=== PATIENT | male | born 1935 | race Caucasian/White ===

== ENCOUNTER 2018-01-15 21:30 | Inpatient (IN) | payer MEDICARE, OTHER ==
[2018-01-15 21:54] LABS: ADD MAN DIFF? NO
[2018-01-15 22:00] LABS: WHITE BLOOD COUNT 9.1 10^3/ul (4.8-10.8)
[2018-01-15 22:00] LABS: ABNORMAL IP MESSAGE 1; BASOPHILS % 0.4 % (0.0-2.0); EOSINOPHILS # 0.2 10^3/ul (0.0-0.5); EOSINOPHILS % 1.7 % (0.0-7.0); HEMATOCRIT 28.7 % (42.0-52.0); HEMOGLOBIN 7.6 g/dl (14.0-18.0); LYMPHOCYTES # 0.9 10^3/ul (0.8-2.9); LYMPHOCYTES % 9.5 % (15.0-51.0); MEAN CORPUSCULAR HEMOGLOBIN 25.5 pg (29.0-33.0); MEAN CORPUSCULAR HGB CONC 26.5 g/dl (32.0-37.0); MEAN CORPUSCULAR VOLUME 96.3 fl (82.0-101.0); MEAN PLATELET VOLUME 9.4 fl (7.4-10.4); MONOCYTES % 11.2 % (0.0-11.0); NEUTROPHILS % 76.6 % (39.0-77.0); PLATELET COUNT 210 10^3/UL (140-415); POSITIVE DIFF @See below; RED BLOOD COUNT 2.98 10^6/ul (4.70-6.10); RED CELL DISTRIBUTION WIDTH 15.6 % (11.5-14.5)
[2018-01-15 22:08] LABS: AADO2 Arterial 150.3 mmHg (7.0-24.0); Allen Test ACCEPTAB; Arterial Base Excess 8.5 mmol/L (-3.0-3); Arterial Blood Gas Oxygen Sat 88.4 mmHG (95.0-100.0); Arterial COHb 1.3 % (0.0-3.0); Arterial Fraction of Oxyhgb 86.9 % (93.0-99.0); Arterial MetHb 0.4 % (0.0-1.5); Arterial Total Hemglobin 9.8 g/dl (12.0-18.0); Arterial pCO2 59.8 mmhg (35-45); MODE NASAL CANNULA; Site Right Radial
[2018-01-15] MEDS ORDERED: IPRATROPIUM (NEB) 0.5 MG/2.5 ML AMP (22:13)
[2018-01-15] MEDS ORDERED: ALBUTEROL 0.5% (NEB) 2.5 MG/0.5 ML AMP (22:13)
[2018-01-15] MEDS: ALBUTEROL 0.083% (NEB) 2.5 MG/3 ML AMP HHN (22:22)
[2018-01-15] MEDS: IPRATROPIUM (NEB) 0.5 MG/2.5 ML AMP HHN (22:22)
[2018-01-15 22:23] LABS: ANION GAP 7 (8-16); BLOOD UREA NITROGEN 26 mg/dl (7-20); CALCIUM 8.2 mg/dl (8.4-10.2); CARBON DIOXIDE 36 mmol/L (21-31); CHLORIDE 105 mmol/L (97-110); CREATININE 0.72 mg/dl (0.61-1.24); GLUCOSE 117 mg/dl (70-220); POTASSIUM 4.5 mmol/L (3.5-5.1); SODIUM 143 mmol/L (135-144)
[2018-01-15 22:36] LABS: B-TYPE NATRIURETIC PEPTIDE 1040 PG/ML (0-450); TROPONIN-I 0.062 ng/ml (0.000-0.120)
[2018-01-15] MEDS: METHYLPREDNISOLONE 125 MG INJ IV (22:44)
[2018-01-15] MEDS: ASPIRIN 325 MG TAB PO (22:45)
[2018-01-15] MEDS ORDERED: ALBUTEROL 0.083% (NEB) 2.5 MG/3 ML AMP HHN (23:30)
[2018-01-15] MEDS ORDERED: NACL 0.9% 3 ML SYG IV (23:30)
[2018-01-15] MEDS ORDERED: ACETAMINOPHEN 325 MG TAB PO (23:30)
[2018-01-15] MEDS ORDERED: BISACODYL (EC) 5 MG TAB PO (23:30)
[2018-01-15] MEDS ORDERED: DOCUSATE SODIUM 100 MG CAP PO (23:30)
[2018-01-16] MEDS: ALBUTEROL/IPRATROPIUM (NEB) 3 ML AMP HHN ×4 (01:00→20:24)
[2018-01-16] MEDS: FUROSEMIDE 40 MG INJ IV ×3 (01:14→20:56)
[2018-01-16] MEDS: PANTOPRAZOLE (EC) 40 MG TAB PO (05:55)
[2018-01-16] MEDS: METHYLPREDNISOLONE 125 MG INJ IV (05:55)
[2018-01-16 07:15] LABS: ADD MAN DIFF? NO
[2018-01-16 07:18] LABS: ABNORMAL IP MESSAGE 1; BASOPHILS % 0.1 % (0.0-2.0); HEMATOCRIT 32.1 % (42.0-52.0); HEMOGLOBIN 8.5 g/dl (14.0-18.0); LYMPHOCYTES # 0.2 10^3/ul (0.8-2.9); LYMPHOCYTES % 2.4 % (15.0-51.0); MEAN CORPUSCULAR HGB CONC 26.5 g/dl (32.0-37.0); MEAN CORPUSCULAR VOLUME 94.4 fl (82.0-101.0); MEAN PLATELET VOLUME 9.7 fl (7.4-10.4); MONOCYTE # 0.1 10^3/ul (0.3-0.9); NEUTROPHIL # 8.6 10^3/ul (1.6-7.5); NEUTROPHILS % 95.7 % (39.0-77.0); PLATELET COUNT 220 10^3/UL (140-415); POSITIVE DIFF @See below; RED CELL DISTRIBUTION WIDTH 15.3 % (11.5-14.5)
[2018-01-16 07:41] LABS: CREATINE KINASE 24 IU/L (23-200)
[2018-01-16 07:47] LABS: C-REACTIVE PROTEIN 5.6 mg/dl (0.0-0.9)
[2018-01-16 07:48] LABS: ALANINE AMINOTRANSFERASE 23 IU/L (13-69); ALBUMIN 3.4 g/dl (3.3-4.9); ALBUMIN/GLOBULIN RATIO 1.06; ALKALINE PHOSPHATASE 68 IU/L (42-121); ANION GAP 13 (8-16); ASPARTATE AMINO TRANSFERASE 13 IU/L (15-46); BILIRUBIN,INDIRECT 0.6 mg/dl (0-1.1); BILIRUBIN,TOTAL 0.6 mg/dl (0.2-1.3); BLOOD UREA NITROGEN 23 mg/dl (7-20); CARBON DIOXIDE 33 mmol/L (21-31); CHLORIDE 102 mmol/L (97-110); CHOL/HDL RATIO 2.6 RATIO; CHOLESTEROL 139 mg/dl (100-200); CREATININE 0.72 mg/dl (0.61-1.24); GLUCOSE 149 mg/dl (70-220); HDL CHOLESTEROL 52 mg/dl (31-75); LDL CHOLESTEROL,CALCULATED 77 mg/dl; MAGNESIUM 1.9 mg/dl (1.7-2.5); POTASSIUM 4.4 mmol/L (3.5-5.1); SODIUM 144 mmol/L (135-144); TOTAL PROTEIN 6.6 g/dl (6.1-8.1); TRIGLYCERIDES 48 mg/dl (0-149)
[2018-01-16 07:54] LABS: CK INDEX 5.3; CK-MB 1.26 ng/ml (0.0-2.4); TROPONIN-I 0.051 ng/ml (0.000-0.120)
[2018-01-16] MEDS: FERROUS SULFATE (EC) 325 MG TAB PO (10:00)
[2018-01-16] MEDS: LEVOFLOXACIN 750MG/D5W (PMX) 150 ML IVPB (10:01)
[2018-01-16 10:43] LABS: ADD MAN DIFF? NO
[2018-01-16 10:49] LABS: ABNORMAL IP MESSAGE 1; HEMATOCRIT 31.2 % (42.0-52.0); HEMOGLOBIN 8.3 g/dl (14.0-18.0); LYMPHOCYTES # 0.3 10^3/ul (0.8-2.9); MEAN CORPUSCULAR HEMOGLOBIN 24.9 pg (29.0-33.0); MEAN CORPUSCULAR HGB CONC 26.6 g/dl (32.0-37.0); MEAN CORPUSCULAR VOLUME 93.7 fl (82.0-101.0); MEAN PLATELET VOLUME 9.2 fl (7.4-10.4); MONOCYTE # 0.1 10^3/ul (0.3-0.9); NEUTROPHIL # 6.7 10^3/ul (1.6-7.5); NEUTROPHILS % 94.2 % (39.0-77.0); PLATELET COUNT 197 10^3/UL (140-415); POSITIVE DIFF @See below; RED BLOOD COUNT 3.33 10^6/ul (4.70-6.10); RED CELL DISTRIBUTION WIDTH 15.3 % (11.5-14.5)
[2018-01-16 10:49] LABS: WHITE BLOOD COUNT 7.1 10^3/ul (4.8-10.8)
[2018-01-16 11:11] LABS: LACTIC ACID 2.2 mmol/L (0.5-2.0)
[2018-01-16 11:17] LABS: ADD UMIC YES; UR ASCORBIC ACID NEGATIVE (NEGATIVE); UR BACTERIA MODERATE /HPF (NONE SEEN); UR BILIRUBIN (Dip) NEGATIVE (NEGATIVE); UR BLOOD (Dip) NEGATIVE (NEGATIVE); UR CLARITY SLIGHTLY CLOUDY (CLEAR); UR COLOR YELLOW (YELLOW); UR GLUCOSE (Dip) NEGATIVE (NEGATIVE); UR KETONES (Dip) NEGATIVE (NEGATIVE); UR LEUKOCYTE ESTERASE (Dip) TRACE Leu/ul (NEGATIVE); UR MUCUS FEW /HPF (NONE SEEN); UR NITRITE (Dip) POSITIVE (NEGATIVE); UR RBC 1 /HPF (0-5); UR SPECIFIC GRAVITY (Dip) 1.012 (1.003-1.030); UR TOTAL PROTEIN (Dip) NEGATIVE (NEGATIVE); UR UROBILINOGEN (Dip) NEGATIVE (NEGATIVE); UR WBC 2 /HPF (0-5)
[2018-01-16 11:36] LABS: CREATINE KINASE 28 IU/L (23-200)
[2018-01-16 13:01] LABS: CK INDEX 4.7; CK-MB 1.32 ng/ml (0.0-2.4)
[2018-01-16 13:06] LABS: TROPONIN-I 0.042 ng/ml (0.000-0.120)
[2018-01-16 14:09] LABS: HEMOGLOBIN A1C 4.7 % (0-5.9)
[2018-01-16 16:22] LABS: ADD MAN DIFF? NO
[2018-01-16 16:25] LABS: ABNORMAL IP MESSAGE 1; HEMATOCRIT 31.6 % (42.0-52.0); HEMOGLOBIN 8.3 g/dl (14.0-18.0); LYMPHOCYTES # 0.2 10^3/ul (0.8-2.9); LYMPHOCYTES % 3.9 % (15.0-51.0); MEAN CORPUSCULAR HGB CONC 26.3 g/dl (32.0-37.0); MEAN CORPUSCULAR VOLUME 95.2 fl (82.0-101.0); MEAN PLATELET VOLUME 9.9 fl (7.4-10.4); MONOCYTE # 0.3 10^3/ul (0.3-0.9); MONOCYTES % 4.9 % (0.0-11.0); NEUTROPHIL # 5.4 10^3/ul (1.6-7.5); NUCLEATED RED BLOOD CELLS% 0.3 /100WBC (0.0-0.0); PLATELET COUNT 208 10^3/UL (140-415); POSITIVE DIFF @See below; RED BLOOD COUNT 3.32 10^6/ul (4.70-6.10); RED CELL DISTRIBUTION WIDTH 15.2 % (11.5-14.5)
[2018-01-16] MEDS: ARFORMOTEROL TARTRATE 15MCG/2 ML AMP INH (20:24)
[2018-01-16] MEDS: BUDESONIDE (NEB) 0.5MG/2ML AMP INH (20:24)
[2018-01-16] MEDS: PRAMIPEXOLE 0.25 MG TAB PO (20:55)
[2018-01-16 22:44] LABS: ADD MAN DIFF? NO
[2018-01-16 22:46] LABS: WHITE BLOOD COUNT 7.5 10^3/ul (4.8-10.8)
[2018-01-16 22:46] LABS: ABNORMAL IP MESSAGE 1; BASOPHILS % 0.1 % (0.0-2.0); HEMATOCRIT 30.2 % (42.0-52.0); HEMOGLOBIN 8.1 g/dl (14.0-18.0); LYMPHOCYTES # 0.4 10^3/ul (0.8-2.9); LYMPHOCYTES % 5.5 % (15.0-51.0); MEAN CORPUSCULAR HEMOGLOBIN 25.2 pg (29.0-33.0); MEAN CORPUSCULAR HGB CONC 26.8 g/dl (32.0-37.0); MEAN CORPUSCULAR VOLUME 93.8 fl (82.0-101.0); MEAN PLATELET VOLUME 9.4 fl (7.4-10.4); MONOCYTE # 0.9 10^3/ul (0.3-0.9); MONOCYTES % 12.4 % (0.0-11.0); NEUTROPHIL # 6.1 10^3/ul (1.6-7.5); NEUTROPHILS % 81.3 % (39.0-77.0); PLATELET COUNT 196 10^3/UL (140-415); POSITIVE DIFF @See below; RED BLOOD COUNT 3.22 10^6/ul (4.70-6.10); RED CELL DISTRIBUTION WIDTH 15.2 % (11.5-14.5)
[2018-01-17] MEDS: ALBUTEROL/IPRATROPIUM (NEB) 3 ML AMP HHN ×6 (00:26→20:33)
[2018-01-17] MEDS: PANTOPRAZOLE (EC) 40 MG TAB PO (05:38)
[2018-01-17] MEDS: LEVOFLOXACIN 750 MG TABLET PO (05:38)
[2018-01-17] MEDS: FUROSEMIDE 40 MG INJ IV (05:39)
[2018-01-17 07:44] LABS: OCCULT BLOOD STOOL NEGATIVE (NEGATIVE)
[2018-01-17 08:03] LABS: ANION GAP 10 (8-16); BLOOD UREA NITROGEN 34 mg/dl (7-20); CARBON DIOXIDE 39 mmol/L (21-31); CHLORIDE 97 mmol/L (97-110); CREATININE 0.92 mg/dl (0.61-1.24); GLUCOSE 96 mg/dl (70-220); PHOSPHORUS 4.1 mg/dl (2.5-4.9); POTASSIUM 4.1 mmol/L (3.5-5.1); SODIUM 142 mmol/L (135-144)
[2018-01-17] MEDS: BUDESONIDE (NEB) 0.5MG/2ML AMP INH ×2 (08:39→20:33)
[2018-01-17] MEDS: ARFORMOTEROL TARTRATE 15MCG/2 ML AMP INH ×2 (09:00→20:33)
[2018-01-17] MEDS: FERROUS SULFATE (EC) 325 MG TAB PO (09:47)
[2018-01-17] MEDS: predniSONE 20 MG TAB PO (09:47)
[2018-01-17] MEDS ORDERED: HARD FAT/PHENYLEPHRINE SUPP PR (14:00)
[2018-01-17] MEDS: POLYETHYLENE GLYCOL 17 GM PACKET PO (15:14)
[2018-01-17] MEDS: PRAMIPEXOLE 0.25 MG TAB PO (20:28)
[2018-01-18] MEDS: ALBUTEROL/IPRATROPIUM (NEB) 3 ML AMP HHN ×6 (00:32→21:09)
[2018-01-18] MEDS: PANTOPRAZOLE (EC) 40 MG TAB PO (05:27)
[2018-01-18] MEDS: LEVOFLOXACIN 750 MG TABLET PO (05:28)
[2018-01-18] MEDS: ARFORMOTEROL TARTRATE 15MCG/2 ML AMP INH ×2 (08:10→21:08)
[2018-01-18] MEDS: BUDESONIDE (NEB) 0.5MG/2ML AMP INH ×2 (08:17→21:09)
[2018-01-18] MEDS: predniSONE 20 MG TAB PO (08:27)
[2018-01-18] MEDS: POLYETHYLENE GLYCOL 17 GM PACKET PO (08:27)
[2018-01-18] MEDS: FERROUS SULFATE (EC) 325 MG TAB PO (08:27)
[2018-01-18] MEDS: PRAMIPEXOLE 0.25 MG TAB PO (20:29)
[2018-01-19] MEDS: ALBUTEROL/IPRATROPIUM (NEB) 3 ML AMP HHN ×4 (01:37→13:07)
[2018-01-19] MEDS: LEVOFLOXACIN 750 MG TABLET PO (05:36)
[2018-01-19] MEDS: PANTOPRAZOLE (EC) 40 MG TAB PO (05:36)
[2018-01-19] MEDS: POLYETHYLENE GLYCOL 17 GM PACKET PO (08:31)
[2018-01-19] MEDS: predniSONE 20 MG TAB PO (08:31)
[2018-01-19] MEDS: FERROUS SULFATE (EC) 325 MG TAB PO (08:31)
[2018-01-19] MEDS: BUDESONIDE (NEB) 0.5MG/2ML AMP INH (09:12)
[2018-01-19] MEDS: ARFORMOTEROL TARTRATE 15MCG/2 ML AMP INH (09:12)
== END 2018-01-19 13:48 | disposition home health service (06) | DRG 190 ==
LOC: TEL 23:11 → E/R 21:30 → TEL 01-16 01:55
DX: J44.1 Chronic obstructive pulmonary disease with (acute) exacerbation (principal); J96.21 Acute and chronic respiratory failure with hypoxia; J18.9 Pneumonia, unspecified organism; K62.5 Hemorrhage of anus and rectum; I50.9 Heart failure, unspecified; I11.0 Hypertensive heart disease with heart failure; D64.9 Anemia, unspecified; R60.0 Localized edema; Z87.891 Personal history of nicotine dependence; Z99.81 Dependence on supplemental oxygen
CPT/HCPCS: 36415; 36600; 71045; 71250; 80048; 80053; 80061; 81001; 82270; 82550; 82553; 82607; 82803; 83036; 83605; 83735; 83880; 84100; 84443; 84484; 85025; 86140; 86850; 86900; 86901; 93005; 93306; 94640; 94644; 94664; 96374; 97163; 99285-25